=== PATIENT | female | born 1975 | race Caucasian/White ===

== ENCOUNTER 2022-12-26 08:51 | Outpatient (CLI) | payer BC, SELFPAY ==
--- NOTE | 2022-12-26 12:00 | NEURO_ITS ---
Impression: # Complains of hand paresthesia. # Carpal Tunnel Syndrome, left more than right. # No ulnar neuropathy. # Normal needle/EMG exam. Nerve Conduction Studies Anti Sensory Summary Table Stim Site NR Peak (ms) P-T Amp (?V) Site1 Site2 Delta-P (ms) Dist (cm) David (m/s) Left Median Anti Sensory (2-3nd Digit) Wrist 4.7 12.7 Wrist 2-3nd Digit 4.7 14.0 30 Wrist 4.6 5.8 Wrist 2-3nd Digit 4.7 14.0 30 Right Median Anti Sensory (2-3nd Digit) Wrist 4.8 14.1 Wrist 2-3nd Digit 4.8 14.0 29 Wrist 5.4 13.2 Wrist 2-3nd Digit 4.8 14.0 29 Left Radial Anti Sensory (Base 1st Digit) Wrist 1.8 22.1 Wrist Base 1st Digit 1.8 0.0 Right Radial Anti Sensory (Base 1st Digit) Wrist 2.3 12.0 Wrist Base 1st Digit 2.3 0.0 Left Ulnar Anti Sensory (5th Digit) Wrist 2.2 50.7 Wrist 5th Digit 2.2 14.0 64 Right Ulnar Anti Sensory (5th Digit) Wrist 2.1 70.3 Wrist 5th Digit 2.1 14.0 67 Motor Summary Table Stim Site NR Onset (ms) O-P Amp (mV) Site1 Site2 Delta-0 (ms) Dist (cm) David (m/s) Left Median Motor (Abd Poll Brev) Wrist 4.1 4.4 Elbow Wrist 4.9 28.0 57 Elbow 9.0 4.1 Right Median Motor (Abd Poll Brev) Wrist 3.3 3.2 Elbow Wrist 4.7 26.0 55 Elbow 8.0 1.3 ELB/ADM Wrist 0.3 0.0 ELB/ADM 3.0 2.8 Erbs ELB/ADM 4.7 26.0 55 Erbs 7.7 2.2 Left Ulnar Motor (Abd Dig Minimi) Wrist 2.2 4.5 A Elbow Wrist 5.1 29.0 57 A Elbow 7.3 4.0 Right Ulnar Motor (Abd Dig Minimi) Wrist 2.5 5.4 A Elbow Wrist 4.9 28.0 57 A Elbow 7.4 3.3 F Wave Studies NR F-Lat (ms) L-R F-Lat (ms) Left Median (Mrkrs) (Abd Poll Brev) 27.02 0.85 Right Median (Mrkrs) (Abd Poll Brev) 26.17 0.85 Left Ulnar (Mrkrs) (Abd Dig Min) 26.65 0.78 Right Ulnar (Mrkrs) (Abd Dig Min) 27.42 0.78 EMG Side Muscle Nerve Root Ins Act Fibs Amp Dur Recrt Comment Right 1stDorInt Ulnar C8-T1 Nml Nml Nml Nml Nml Right Ext Indicis Radial (Post Int) C7-8 Nml Nml Nml Nml Nml Right Ext Digitorum Radial (Post Int) C7-8 Nml Nml Nml Nml Nml Right BrachioRad Radial C5-6 Nml Nml Nml Nml Nml Right PronatorTeres Median C6-7 Nml Nml Nml Nml Nml Right Abd Poll Brev Median C8-T1 Nml Nml Nml Nml Nml Left 1stDorInt Ulnar C8-T1 Nml Nml Nml Nml Nml Left Ext Indicis Radial (Post Int) C7-8 Nml Nml Nml Nml Nml Left Ext Digitorum Radial (Post Int) C7-8 Nml Nml Nml Nml Nml Left BrachioRad Radial C5-6 Nml Nml Nml Nml Nml Left PronatorTeres Median C6-7 Nml Nml Nml Nml Nml Left Abd Poll Brev Median C8-T1 Nml Nml Nml Nml Nml MTDD
== END 2022-12-26 08:52 | disposition home or self-care (01) ==
PROVIDERS: PCP Physician Assistant; Visit Provider Physician Assistant
DX: G56.03 Carpal tunnel syndrome, bilateral upper limbs (principal)
CPT/HCPCS: 95886; 95911

== ENCOUNTER 2023-11-06 00:31 | Day surgery (SDC) | payer BC, SELFPAY ==
[2023-10-29 14:25] VITALS: BMI 37.8
--- NOTE | 2023-10-29 14:26 | PC.NURSE ---
Report to the Outpatient Waiting Room, entrance under the green pavilion located off [facility], at time _0715_ on date _[id number]_. Planned Procedure Time: _914_.? Time changes happen often and if your time is changed the preop area will call you the afternoon before. - You and your visitor will be asked to self-screen and do not enter if you have any COVID symptoms. Please call surgeon if you need to reschedule. - A mask is optional within the hospital at this time. - No food or drink from midnight until time of surgery and no smoking Take only the following medications with a SIP of water on the morning of surgery: ____Metoprolol and Escitalopram DO NOT STOP ANY OF YOUR OTHER PRESCRIPTION MEDICATIONS PRIOR TO SURGERY EXCEPT THE FOLLOWING Medications to discontinue per physician None Please no make-up, nail kinyarwanda, hairspray, perfume, deodorant, or body powder the day of surgery.? No jewelry (including any body piercings) or valuables the day of surgery, leave them at home.? Please take a shower or bath the night before, or the morning of, surgery with an antibacterial soap.? Wear comfortable, loose fitting clothing.? - Jewelry must be removed prior to entering the operating room.? Rings and piercings that are not removed may be cut off. - The hospital will not accept responsibility for valuables.? - Please leave all valuables, including medications, at home the day of surgery. If you are going home after surgery, a licensed tier truck driver must drive you home.? - NO public transportation without another adult if you receive anesthesia. - We recommend that an adult stay with you for 24 hours following discharge. - We also recommend that you do not drive, make important decision, drink alcoholic beverages, or take any drugs that were not prescribed by your health care provider for at least 24 hours after your discharge time. Follow any additional instructions given to you from your surgeon. Telephone instructions given to __Dawn__and asked if any additional questions and then verbalized understanding. Patient advised to call surgeon office or pre surgery nurse liaison [phone] if any additional questions.
[2023-11-06 06:50] VITALS: BP 130/84; PULSE 70; RESP 20; TEMP 36.6; O2SAT 98
--- NOTE | 2023-11-06 07:03 | PM.HPGS ---
History of Present Illness History of Present Illness Chief complaint: right carpal tunnel Narrative: Patient seen and examined in pre-operative holding area. No interval change in medical history or symptoms. Patient recalls previous discussion of benefits and alternatives to procedure. Continues to desire to proceed with right endoscopic possible open carpal tunnel release. Reviewed procedure, post-op expectations and risks including but not limited to bleeding, infection, injury to tendon/nerve/vessel, decreased hand function, stiffness, RSD, no change or worsening of symptoms. I discussed the possible use of assistants and their participation in the case. Patient stated understanding and signed the consent form wishing to proceed. Review of Systems Review of Systems: All systems reviewed & are unremarkable except as noted in HPI and below PMFSH Family History Family History (Updated 07/21/23 @ 13:41 by Kianna Olivia CMA) Father Cancer Hypertension Mother Diabetes mellitus Heart disease Thyroid disorder Grandparent Heart disease Cancer Social History Social History (Updated 07/21/23 @ 13:36 by Kianna Olivia CMA) Smoking status: Never smoker Alcohol intake: never Substance use: never Substance use type: does not use Do You Feel Safe in your Home?: Yes Lack of Transportation: No Lack of Food: Never True Current Housing: I Have Housing Concerned About Future Housing: No Difficulty Paying Gas/Electric Bills: No Difficulty Paying for Meds: No Currently Unemployed: No Education: High School Diploma/GED Difficulty w/ Childcare or Family Care: No Living arrangements: with family Spiritual care concerns: No Meds Home Medications and Allergies Home Medications Medication Instructions Recorded Confirmed Type escitalopram oxalate 10 mg tablet 10 mg PO DAILY 07/21/23 11/06/23 History metoprolol succinate 50 mg 50 mg PO DAILY 07/21/23 11/06/23 History tablet,extended release 24 hr valsartan 160 mg tablet 160 mg PO DAILY 07/21/23 11/06/23 History Allergies Allergy/AdvReac Type Severity Reaction Status Date / Time No Known Allergies Allergy Unknown Verified 10/29/23 14:19 Exam Narrative: unchanged Assessment and Plan Assessment and plan (1) Carpal tunnel syndrome, bilateral: Code(s): G56.03 - Carpal tunnel syndrome, bilateral upper limbs Status: Acute Assessment and Plan: cont as above
--- NOTE | 2023-11-06 07:04 | P.OP_ITS ---
Procedure Note - Detailed Date of Procedure 11/06/23 Pre-op Diagnosis right carpal tunnel Post-op Diagnosis Same Procedure Performed right ectr Surgeon Abiodun Ortiz MD Food Safety Field Specialist gibran espinoza pa-c Anesthesia MAC Description of Procedure INFORMED CONSENT: The patient was seen and examined and marked in the pre-op area.? The patient signed the consent form. PROCEDURE IN DETAIL:The patient taken back to OR on the stretcher in supine position. Time out performed with anesthesia, surgeon and staff agreeing on patient's name site and surgery to be performed SCDs were placed on the lower extremities and inflated. A tourniquet was placed on {right} upper extremity and antibiotics given IV After anesthesia administered sedation I injected {5}cc 1%lido with epi and 0.5% marcaine plain at the operative site The?{right upper extremity}?was prepped and draped in sterile fashion the??{right upper extremity} was? exsanguinated with Esmarch bandage and tourniquet inflated to 250mmHg I made a transverse incision in the right} volar distal wrist crease through skin and dermis with 15 blade scalpel.? Littler scissors spread down to antebrachial fascia. A small incision was made in antebrachial fascia allowing access to Carpal tunnel. I proceeded with sequential dilation staying in line with the ring finger and hugging the hook of the hamate.? I then used the synovial elevator to free any adhesions from the underside of the transverse carpal ligament. Next I was able to insert the Microaire endoscopic carpal tunnel device with direct visualization of the transverse fibers on the monitor and proceeded with complete segmental retrograde release of the ligament in its entirety.? I irrigated with normal saline and closed with 4-0 monocryl for dermis and subcuticular closure. A dressing of Dermabond, 4x4, alexandre, and a volar splint was applied for patient safety, security, and comfort and secured with an lexis bandage after the tourniquet was let down noting the hand was warm and well perfused. The patient was then awaken from anesthesia and transferred to the recovery room in stable condition.? Complications - none EBL- 0cc Disposition - home in stable conditions gibran espinoza pa-c was essential for positioning, retraction, closure and dressing placement [facility] [place] Billing Surgery - Charge Forward: Surgery Billing ([id number] for gibran)
[2023-11-06] MEDS: LACTATED RINGERS 1,000 ML 30 ML IV CONT (07:32)
--- NOTE | 2023-11-06 07:45 | WPDANESEPPF ---
Anes - Initial Pre Proc Eval Procedure: Operation Date: 11/06/23 08:15 Proposed Procedures p Right Endoscopic Carpal Tunnel Release, Possible Open - Abiodun Ortiz MD Date/Time: 11/06/23 07:45 Surgeon: Abiodun Ortiz MD Pre Op Diagnosis: right carpal tunnel Patient Data Age: 48 Gender: F Height: 1.63 m Weight: 100 kg Allergies Allergy/AdvReac Type Severity Reaction Status Date / Time No Known Allergies Allergy Unknown Verified 10/29/23 14:19 Home Medications Medication Instructions Recorded Confirmed Type escitalopram oxalate 10 mg tablet 10 mg PO DAILY 07/21/23 11/06/23 History metoprolol succinate 50 mg 50 mg PO DAILY 07/21/23 11/06/23 History tablet,extended release 24 hr valsartan 160 mg tablet 160 mg PO DAILY 07/21/23 11/06/23 History Patient hx anesthesia problems: none Family hx anesthesia problems: none Results Review: All pre-operative results and documents have been reviewed as part of the pre-operative evaluation. [facility] Family History Family History (Updated 07/21/23 @ 13:41 by Kianna Olivia CMA) Father Cancer Hypertension Mother Diabetes mellitus Heart disease Thyroid disorder Grandparent Heart disease Cancer Social History Social History (Updated 07/21/23 @ 13:36 by Kianna Olivia CMA) Smoking status: Never smoker Alcohol intake: never Substance use: never Substance use type: does not use Do You Feel Safe in your Home?: Yes Lack of Transportation: No Lack of Food: Never True Current Housing: I Have Housing Concerned About Future Housing: No Difficulty Paying Gas/Electric Bills: No Difficulty Paying for Meds: No Currently Unemployed: No Education: High School Diploma/GED Difficulty w/ Childcare or Family Care: No Living arrangements: with family Spiritual care concerns: No Anes - Eval Final PreProcedure Day of Procedure 11/06/23 07:45 Patient weight: obese Heart: regular rate and rhythm Lungs: clear to auscultation Airway: Mallampati scale class II Neurological: alert and oriented Last oral intake: >/= 8 hours ASA classification: III Emergent: no Anesthetic plan: proceed Anesthesia type and monitoring: general GIVS and standard monitoring Results Review: All pre-operative results and documents have been reviewed as part of the pre-operative evaluation. Informed Consent: The patient's anesthetic plan and its attendant risks and benefits were discussed with the patient/family/POA. Questions were solicited and answers provided to the satisfaction of the patient/family/POA.
[2023-11-06] MEDS: ceFAZolin 2 GM/D5W 50 ML 2 GM/50 ML BAG IVPB (08:15)
[2023-11-06] MEDS: LIDO 1%/EPINEPHRINE 1:100,000 50 ML VIAL 10 ML INFILTRATE (08:22)
[2023-11-06 08:39] VITALS: BP 113/69; PULSE 57; RESP 16; O2SAT 100
[2023-11-06 09:10] VITALS: BP 114/62; PULSE 63; RESP 16
[2023-11-06 09:40] VITALS: BP 118/66; PULSE 66; RESP 16
[2023-11-09 14:24] LABS: BEDSIDEPREGUCG Negative (Negative)
== END 2023-11-06 09:50 | disposition home or self-care (01) ==
PROVIDERS: Physician Assistant Surgical; PCP Physician Assistant; Visit Provider Plastic Surgery
PROC: 01N54ZZ Release Median Nerve, Percutaneous Endoscopic Approach (ICD-10-PCS; CPT 29848; principal; 2023-11-06 08:15)
DX: G56.01 Carpal tunnel syndrome, right upper limb (principal); E66.9 Obesity, unspecified; Z68.38 Body mass index [BMI] 38.0-38.9, adult; Z80.9 Family history of malignant neoplasm, unspecified; Z82.49 Family history of ischemic heart disease and other diseases of the circulatory system
CPT/HCPCS: 29848; J0690; J1100; J2250; J2405; J2704; J3010; J7120

== ENCOUNTER 2023-12-30 01:04 | Day surgery (SDC) | payer BC, SELFPAY ==
[2023-12-23 13:56] VITALS: BMI 37.8
--- NOTE | 2023-12-23 13:56 | PC.NURSE ---
Report to the Outpatient Waiting Room, entrance under the green pavilion located off [facility], at time _0915_ on date _[phone]_. Planned Procedure Time: _1115_.? Time changes happen often and if your time is changed the preop area will call you the afternoon before. - You and your visitor will be asked to self-screen and do not enter if you have any COVID symptoms. Please call surgeon if you need to reschedule. - A mask is optional within the hospital at this time. Patients may have clear liquids (water, carbonated beverages, clear teas, apple juice) until 3 hours prior to surgery with a maximum of 20 ounces. - No food from midnight until time of surgery and no smoking Take only the following medications with a SIP of water on the morning of surgery: ___Escitalopram and Metoprolol____ DO NOT STOP ANY OF YOUR OTHER PRESCRIPTION MEDICATIONS PRIOR TO SURGERY EXCEPT THE FOLLOWING Medications to discontinue per physician ___None___ Date to take last dose__ Please no make-up, nail canadian, hairspray, perfume, deodorant, or body powder the day of surgery.? No jewelry (including any body piercings) or valuables the day of surgery, leave them at home.? Please take a shower or bath the night before, or the morning of, surgery with an antibacterial soap.? Wear comfortable, loose fitting clothing.? - Jewelry must be removed prior to entering the operating room.? Rings and piercings that are not removed may be cut off. - The hospital will not accept responsibility for valuables.? - Please leave all valuables, including medications, at home the day of surgery. If you are going home after surgery, a licensed pile driver operator barge mounted must drive you home.? - NO public transportation without another adult if you receive anesthesia. - We recommend that an adult stay with you for 24 hours following discharge. - We also recommend that you do not drive, make important decision, drink alcoholic beverages, or take any drugs that were not prescribed by your health care provider for at least 24 hours after your discharge time. Follow any additional instructions given to you from your surgeon. Telephone instructions given to __Dawn__and asked if any additional questions and then verbalized understanding. Patient advised to call surgeon office or pre surgery nurse liaison [phone] if any additional questions.
--- NOTE | 2023-12-23 14:00 | PC.NURSE ---
Report to the Outpatient Waiting Room, entrance under the green pavilion located off [facility], at time _0915_ on date _[phone]_. Planned Procedure Time: _1115_.? Time changes happen often and if your time is changed the preop area will call you the afternoon before. - You and your visitor will be asked to self-screen and do not enter if you have any COVID symptoms. Please call surgeon if you need to reschedule. - A mask is optional within the hospital at this time. May have clear liquids (water, carbonated beverages, clear teas, apple juice) until 315am with a maximum of 20 ounces. Nothing to drink after 315am until after surgery except to take medications. - No food from midnight until time of surgery and no smoking Take only the following medications with a SIP of water on the morning of surgery: ___Excitalopram and Metoprolol____ DO NOT STOP ANY OF YOUR OTHER PRESCRIPTION MEDICATIONS PRIOR TO SURGERY EXCEPT THE FOLLOWING Medications to discontinue per physician __None____ Please no make-up, nail guatemalan, hairspray, perfume, deodorant, or body powder the day of surgery.? No jewelry (including any body piercings) or valuables the day of surgery, leave them at home.? Please take a shower or bath the night before, or the morning of, surgery with an antibacterial soap.? Wear comfortable, loose fitting clothing.? - Jewelry must be removed prior to entering the operating room.? Rings and piercings that are not removed may be cut off. - The hospital will not accept responsibility for valuables.? - Please leave all valuables, including medications, at home the day of surgery. If you are going home after surgery, a licensed flatbed driver must drive you home.? - NO public transportation without another adult if you receive anesthesia. - We recommend that an adult stay with you for 24 hours following discharge. - We also recommend that you do not drive, make important decision, drink alcoholic beverages, or take any drugs that were not prescribed by your health care provider for at least 24 hours after your discharge time. Follow any additional instructions given to you from your surgeon. Telephone instructions given to __Dawn__and asked if any additional questions and then verbalized understanding. Patient advised to call surgeon office or pre surgery nurse liaison [phone] if any additional questions.
--- NOTE | 2023-12-30 06:55 | PM.HPGS ---
History of Present Illness History of Present Illness Chief complaint: carpal tunnel syndrome Narrative: Patient seen and examined in pre-operative holding area. No interval change in medical history or symptoms. Patient recalls previous discussion of benefits and alternatives to procedure. Continues to desire to proceed with left endoscopic possible open carpal tunnel release . Reviewed procedure, post-op expectations and risks including but not limited to bleeding, infection, injury to tendon/nerve/vessel, decreased hand function, stiffness, RSD, no change or worsening of symptoms. I discussed the possible use of assistants and their participation in the case. Patient stated understanding and signed the consent form wishing to proceed. Review of Systems Review of Systems: All systems reviewed & are unremarkable except as noted in HPI and below PMFSH Family History Family History Father Cancer Hypertension Mother Diabetes mellitus Heart disease Thyroid disorder Grandparent Heart disease Cancer Social History Social History Smoking status: Never smoker Alcohol intake: never Substance use: never Substance use type: does not use Do You Feel Safe in your Home?: Yes Lack of Transportation: No Lack of Food: Never True Current Housing: I Have Housing Concerned About Future Housing: No Difficulty Paying Gas/Electric Bills: No Difficulty Paying for Meds: No Currently Unemployed: No Education: High School Diploma/GED Difficulty w/ Childcare or Family Care: No Living arrangements: with family Spiritual care concerns: No Meds Home Medications and Allergies Home Medications Medication Instructions Recorded Confirmed Type escitalopram oxalate 10 mg tablet 10 mg PO DAILY 07/21/23 12/23/23 History metoprolol succinate 50 mg 50 mg PO DAILY 07/21/23 12/23/23 History tablet,extended release 24 hr valsartan 160 mg tablet 160 mg PO DAILY 07/21/23 12/30/23 History tramadol 50 mg tablet 50 mg PO Q6H PRN pain #12 tabs 11/06/23 12/23/23 Rx Allergies Allergy/AdvReac Type Severity Reaction Status Date / Time No Known Allergies Allergy Unknown Verified 12/30/23 09:55 Exam Narrative: unchanged Assessment and Plan Assessment and plan (1) Carpal tunnel syndrome, bilateral: Code(s): G56.03 - Carpal tunnel syndrome, bilateral upper limbs Status: Acute Assessment and Plan: cont as above
--- NOTE | 2023-12-30 06:55 | W.PM.PROC2 ---
Procedure Note - Detailed Date of Procedure 12/30/23 Pre-op Diagnosis left carpal tunnel syndrome Post-op Diagnosis Same Procedure Performed left ectr Surgeon Abiodun Ortiz MD Supervisor Cytogenetic Laboratory gibran espinoza pa-c Anesthesia MAC Description of Procedure INFORMED CONSENT: The patient was seen and examined and marked in the pre-op area.? The patient signed the consent form. PROCEDURE IN DETAIL:The patient taken back to OR on the stretcher in supine position. Time out performed with anesthesia, surgeon and staff agreeing on patient's name site and surgery to be performed SCDs were placed on the lower extremities and inflated. A tourniquet was placed on {left} upper extremity and antibiotics given IV After anesthesia administered sedation I injected {4}cc 1%lido with epi and 0.5% marcaine plain at the operative site The?{left upper extremity}?was prepped and draped in sterile fashion the??{left upper extremity} was? exsanguinated with Esmarch bandage and tourniquet inflated to 250mmHg I made a transverse incision in the {left} volar distal wrist crease through skin and dermis with 15 blade scalpel.? Littler scissors spread down to antebrachial fascia. A small incision was made in antebrachial fascia allowing access to Carpal tunnel. I proceeded with sequential dilation staying in line with the ring finger and hugging the hook of the hamate.? I then used the synovial elevator to free any adhesions from the underside of the transverse carpal ligament. Next I was able to insert the Microaire endoscopic carpal tunnel device with direct visualization of the transverse fibers on the monitor and proceeded with complete segmental retrograde release of the ligament in its entirety.? I irrigated with normal saline and closed with 4-0 monocryl for dermis and subcuticular closure. A dressing of Dermabond, 4x4, alexandre, and a volar splint was applied for patient safety, security, and comfort and secured with an lexis bandage after the tourniquet was let down noting the hand was warm and well perfused. The patient was then awaken from anesthesia and transferred to the recovery room in stable condition.? Complications - none EBL- 0cc Disposition - home in stable conditions Gibran Espinoza PA-C was essential for positionig, retraction, closure and dressing placement [facility] [place] Billing Surgery - Charge Forward: Surgery Billing ([id number] for gibran)
[2023-12-30 10:05] VITALS: BP 132/84; PULSE 68; RESP 18; TEMP 36.7; O2SAT 99
[2023-12-30] MEDS: LACTATED RINGERS 1,000 ML 30 ML IV CONT (10:09)
[2023-12-30 10:17] VITALS: BMI 38.9
[2023-12-30 10:29] LABS: BEDSIDEPREGUCG Negative (Negative)
--- NOTE | 2023-12-30 10:36 | P.PNAN_ITS ---
Anes - Initial Pre Proc Eval Procedure: Operation Date: 12/30/23 11:15 Proposed Procedures p Left Endoscopic Carpal Tunnel Release, Possible Open - Abiodun Ortiz MD Date/Time: 12/30/23 10:36 Surgeon: Abiodun Ortiz MD Pre Op Diagnosis: carpal tunnel syndrome Patient Data Age: 48 Gender: F Height: 1.63 m Weight: 103.1 kg Last Vital Signs Temp 98.1 F 12/30/23 10:05 Pulse 68 12/30/23 10:05 Resp 18 12/30/23 10:05 BP 132/84 12/30/23 10:05 Pulse Ox 99 12/30/23 10:05 O2 Del Method Room Air 12/30/23 10:05 Allergies Allergy/AdvReac Type Severity Reaction Status Date / Time No Known Allergies Allergy Unknown Verified 12/30/23 09:55 Home Medications Medication Instructions Recorded Confirmed Type escitalopram oxalate 10 mg tablet 10 mg PO DAILY 07/21/23 12/23/23 History metoprolol succinate 50 mg 50 mg PO DAILY 07/21/23 12/23/23 History tablet,extended release 24 hr valsartan 160 mg tablet 160 mg PO DAILY 07/21/23 12/30/23 History tramadol 50 mg tablet 50 mg PO Q6H PRN pain #12 tabs 11/06/23 12/23/23 Rx Laboratory Tests 12/30/23 10:25 POC Urine HCG, Qual Negative (Negative) Patient hx anesthesia problems: none Family hx anesthesia problems: none Results Review: All pre-operative results and documents have been reviewed as part of the pre- operative evaluation. [facility] Family History Family History Father Cancer Hypertension Mother Diabetes mellitus Heart disease Thyroid disorder Grandparent Heart disease Cancer Social History Social History Smoking status: Never smoker Alcohol intake: never Substance use: never Substance use type: does not use Do You Feel Safe in your Home?: Yes Lack of Transportation: No Lack of Food: Never True Current Housing: I Have Housing Concerned About Future Housing: No Difficulty Paying Gas/Electric Bills: No Difficulty Paying for Meds: No Currently Unemployed: No Education: High School Diploma/GED Difficulty w/ Childcare or Family Care: No Living arrangements: with family Spiritual care concerns: No Anes - Eval Final PreProcedure Day of Procedure 12/30/23 10:36 Patient weight: obese Heart: regular rate and rhythm Lungs: clear to auscultation Airway: Mallampati scale class II and special considerations (Missing some in the post upper aspect. ) Neurological: alert and oriented Last oral intake: >/= 8 hours ASA classification: III Emergent: no Anesthetic plan: proceed Anesthesia type and monitoring: general GIVS and standard monitoring Results Review: All pre-operative results and documents have been reviewed as part of the pre- operative evaluation. Informed Consent: The patient's anesthetic plan and its attendant risks and benefits were discussed with the patient/family/POA. Questions were solicited and answers provided to the satisfaction of the patient/family/POA.
[2023-12-30] MEDS: ceFAZolin 2 GM/D5W 50 ML 2 GM/50 ML BAG IVPB (10:41)
[2023-12-30] MEDS: LIDO 1%/EPINEPHRINE 1:100,000 20 ML VIAL 10 ML INFILTRATE (10:45)
[2023-12-30] MEDS: BUPivacaine HCL 0.5% 10 ML AMP 5 ML INFILTRATE (10:46)
[2023-12-30 11:05] VITALS: BP 108/66; PULSE 66; RESP 16; O2SAT 93
[2023-12-30 11:30] VITALS: BP 93/68; PULSE 53; RESP 16; O2SAT 98
[2023-12-30 12:00] VITALS: BP 120/74; PULSE 61; RESP 16
[2023-12-30 12:15] VITALS: BP 118/76; PULSE 56; RESP 16
== END 2023-12-30 12:20 | disposition home or self-care (01) ==
PROVIDERS: Physician Assistant Surgical; PCP Physician Assistant; Visit Provider Plastic Surgery
PROC: 01N54ZZ Release Median Nerve, Percutaneous Endoscopic Approach (ICD-10-PCS; CPT 29848; principal; 2023-12-30 11:15)
DX: G56.02 Carpal tunnel syndrome, left upper limb (principal); E66.9 Obesity, unspecified; Z68.39 Body mass index [BMI] 39.0-39.9, adult
CPT/HCPCS: 29848; A9270; J0690; J2003; J2004; J2250; J2405; J2704; J3010; J7120

== ENCOUNTER 2025-01-09 10:44 | Emergency (ER) | payer BC, SELFPAY ==
[2025-01-09 10:47] VITALS: BP 172/90; PULSE 90; RESP 16; TEMP 36.6; O2SAT 100
[2025-01-09 11:29] LABS: Hematocrit 40.6 % (37.0-47.0); Hemoglobin 13.3 g/dL (12.0-15.0); Immature Granulocyte Percent A 0.3 % (0-0.5); Lymphocytes Absolute Auto 0.84 K/mm3 (0.9-3.2); Mean Corpuscular HGB Conc 32.8 g/dl (32-36); Mean Corpuscular Hemoglobin 28.4 pg (26-34); Mean Corpuscular Volume 86.8 fl (80-100); Nucleated Red Blood Cells Absolute Auto 0.000 K/mm3 (0.0-0.012); Nucleated Red Blood Cells Perc 0.0 % (0.0-0.2); Platelet Count Result 297 k/mm3 (150-375); Red Blood Count 4.68 M/mm3 (4.2-5.4); White Blood Count 7.8 K/mm3 (4.5-10.0)
[2025-01-09 11:32] LABS: Add Urine Microscopic? YES; Appearance Urine Clear (Clear); Glucose Urine UA Negative (Negative); Leukocyte Esterase Ur Trace LEU/UL (Negative); Nitrate Urine Negative (Negative); Non Pathogenic Casts 0-2; Specific Grav Ur 1.006 (1.001-1.035)
[2025-01-09 11:45] LABS: Pregnancy On Board Control Positive
[2025-01-09 11:49] LABS: Alanine Aminotransferase 37 U/L (6-35); Albumin Level 4.6 g/dL (3.5-5.1); Alkaline Phosphatase 33 U/L (38-126); Anion Gap 7 mmol/L (4-12); Aspartate Amino Transferase 38 U/L (14-36); Bilirubin,Total 2.6 mg/dL (0.2-1.3); Blood Urea Nitrogen 21 mg/dL (7-17); Calcium 9.2 mg/dL (8.4-10.2); Carbon Dioxide 29 mmol/L (22-30); Chloride 101 mmol/L (98-107); Estimated CRCL calculation 68 ml/min; Estimated Glomerular Filt Rate 59; Glucose 106 mg/dL (65-110); Lipase 175 U/L (23-300); Potassium 3.6 mmol/L (3.4-5.0); Sodium 137 mmol/L (137-145); Total Protein 8.3 g/dL (6.3-8.2)
[2025-01-09] MEDS: SODIUM CHLORIDE 0.9% IV 1,000 ML 999 ML IV CONT (12:07)
--- OUTSIDE RECORDS SUMMARY | 2025-01-09 12:13 | XMS_ITS | Clinical Summary ---
Author Organization [facility] Address [address] [place] [address] Care Team Providers Care Home School Teacher Name Role Phone Jana Guadarrama Primary Care Pr ovider Source Comments [facility],non-owned Affiliates and Associated Physician Practices is amultiple site organization consisting of ambulatory clinics and hospital sitesin [place], [place], [place] and [place]. This disclosure is being madepursuant to the Care Everywhere program and may not contain all information available regarding this patient. Last updated 17.[facility] Allergies No known active allergies Medications * Be aware that medications may not be up to date on this document. Alwaysverify current medications with the patient. metoprolol succinate XL 24hr (TOPROL XL) 100 MG tablet Take 100 mg by mouth at bedtime 1 Active irbesartan (AVAPRO) 150 MG tablet Take 150 mg by mouth once daily 1 Active polyethylene glycol 3350 (MIRALAX) 17 g packet Take 17 (seventeen) g by mouth once daily To prevent constipation 2 Active Additional Information Patient not taking.Reported on 09/16/2021 omeprazole (PRILOSEC) 20 MG capsule Take 1 (one) capsule by mouth once daily 30 capsule 5 2 Active Active Problems Problem Noted Date Diagnosed Date Morbid obesity 03/18/2021 Family History Medical History Relation Name Comments Cancer Father tonsil Diabetes - Type 2 Mother Hypertension Mother Cancer - Colon Paternal Grandmother Relation Name Status Comments Father Mother Paternal Grandmother Social History Tobacco Use Types Packs/Day Years Used Date Smoking Tobacco: Never Smokeless Tobacco: Never Alcohol Use Standard Drinks/Week Comments Not Currently 0 (1 standard drink = 0.6 oz pur e alcohol) Comments No Sex and Gender Information Value Date Recorded Sex Assigned at Female 12/06/2020 5:22 PM CDT Legal Sex Female 10:09 AM CDT Gender Identity Female 12/06/2020 5:22 PM CDT Sexual Orientation Straight 12/06/2020 5: 22 PM CDT Last Filed Vital Signs Vital Sign Reading Time Taken Comments Blood Pressure 131/87 09/16/2021 1:48 PM CDT Pulse 83 09/16/2021 1:48 PM CDT Temperature 36.5 C (97.7 F) 04/18/2021 10:24 AM BALL HOLDER Respiratory Rate 18 09/16/2021 1:48 PM CDT Oxygen Saturation 99% 09/16/2021 1:48 PM CDT Inhaled Oxygen Concentration - - Weight 89.1 kg (196 lb 6.4 oz) 09/16/2021 1:48 P M CDT Height 160 cm (5' 3) 09/16/2021 1:48 PM CDT Body Mass Index 34.79 09/16/2021 1:48 PM CDT Plan of Treatment Health Maintenance Due Date Last Done Comments COLOGUARD (AGES 45-75) - COLON CA SCREENING 1976 COLON MONITORING 1976 COLONOSCOPY - COLON CA SCREENING 1976 CT COLONOGRAPHY - COLON CA SCREENING 1976 Colorectal Cancer Screening 1976 FIT - COLON CA SCREENING 1976 FLEX SIG - COLON CA SCREENING 1976 LIPID TESTING 1975 MAMMOGRAM 1976 HIV SCREENING 09/07/1991 HEPATITIS C SCREENING 09/02/1994 DTAP/TDAP/TD VACCINES (1 - Tdap) 09/07/1995 HEPATITIS B VACCINE (1 of 3 - 19+ 3-dose series) 09/07/1995 Cervical Cancer Screening 1997 PAP SMEAR 1997 PAP with HPV 2006 DEPRESSION SCREENING 02/10/2024 SCREENING FOR DIABETES 03/19/2024 , 03/18/2021, 03/18/2021, Additional history exists COVID-19 VACCINE ( season) 2024 07/23/2020, 07/02/2020 INFLUENZA VACCINE (#1) 2024 ZOSTER VACCINE (1 of 2) 2026 HIB VACCINE Aged Out No longer eligi ble based on patient's age to complete this topic HPV VACCINE Aged Out No longer eligi ble based on patient's age to complete this topic MENINGOCOCCAL (Group B) VACCINE SHARED DECISION-MAKING Aged Out No longer eligible based on patient's age to complete this topic MENINGOCOCCAL GROUPS A/C/Y/W VACCINE Aged Out No longer eligible based on patient's age to complete this topic PNEUMOCOCCAL VACCINE Aged Out No long er eligible based on patient's age to complete this topic Procedures Procedure Name Priority Date/Time Associated Diagnosis Comments BASIC METABOLIC PANEL (CALCIUM TOTAL) AM Draw 03/19/2021 3:55 AM BALL HOLDER from Last 3 Months or Most Recently Relevant to Health Maintenance Results * (ABNORMAL) BASIC METABOLIC PANEL (CALCIUM TOTAL) (03/19/2021 3:55 AM BALL HOLDER) Glucose 119(H) 70 - 105 mg/dL 03/19/2021 5:19 AM BALL HOLDER [facility] Sodium 139 136 - 145 mmol/L 03/19/2021 5:19 AM BALL HOLDER [facility] Potassium 3.7 3.5 - 5.1 mmol/L 03/19/2021 5:19 AM BALL HOLDER [facility] Chloride 105 98 - 107 mmol/L 03/19/2021 5:19 AM BALL HOLDER [facility] CO2 24 23 - 31 mmol/L 03/19/2021 5:19 AM BALL HOLDER [facility] Calcium 9.0 8.4 - 10.4 mg/dL 03/19/2021 5:19 AM BALL HOLDER [facility] Anion Gap 10 8 - 18 mmol/L 03/19/2021 5:19 AM BALL HOLDER [facility] BUN 9 7 - 18.7 mg/dL 03/19/2021 5:19 AM [facility] Creatinine 1.17(H) 0.57 - 1.11 mg/dL 03/19/2021 5:19 AM BALL HOLDER [facility] eGFR by MDRD 50(L) >60 mL/min/1.7 3m2 03/19/2021 5:19 AM BALL HOLDER [facility] eGFR by MDRD >60 >60 mL/min/1.7 3m2 03/19/2021 5:19 AM BALL HOLDER [facility] Blood BLOOD SPECIMEN / Unknown Venipuncture / Unknown 03/19/2021 3:55 AM BALL HOLDER 03/19/2021 4:49 AM BALL HOLDER us Solo Velez MD LAB - CHEMISTRY ORDERABLES F inal Result [facility] [address] [place] [address] from Last 3 Months or Most Recently Relevant to Health Maintenance Insurance Advance Directives * Full Code (Latest Code Status on File) Date Activated Date Inactivated Comments 03/18/2021 3:37 PM 03/19/2021 3:22 PM Care Teams Home School Teacher Relationship Specialty Start Date End Date Jana Guadarrama PA [address] [place] [address] PCP - General Physician Lens Inspector 09/19/20
--- OUTSIDE RECORDS SUMMARY | 2025-01-09 12:13 | XMS_ITS | Clinical Summary ---
Author Organization [facility] [address] Address [address] [place] [address] Care Team Providers Care Internet Marketing Director Name Role Phone Jana Harden Primary Care Pr ovider Allergies No known active allergies Medications metoprolol XL (TOPROL-XL) 100 mg 24 hr tablet Take 0.5 tablets (50 mg total) by mouth daily Active valsartan (DIOVAN) 160 mg tablet Take 1 tablet (160 mg total) by mouth daily Active escitalopram (LEXAPRO) 10 mg tablet Take 1 tablet (10 mg total) by mouth daily Active Active Problems Problem Noted Date Diagnosed Date Screening for colon cancer 06/11/2023 Medical History Medical History Date Comments Hypertension Family History Medical History Relation Name Comments Colon cancer Paternal Grandmother Relation Name Status Comments Paternal Grandmother Social History Tobacco Use Types Packs/Day Years Used Date Smoking Tobacco: Never Tobacco Cessation:Counseling Given: Not Answered AUDIT-C Answer Date Recorded Q1: How often do you have a drink containing alcohol? Never 02/23/2024 Q2: How many drinks containi ng alcohol do you have on a typical day when you are drinking? Patient does not drink Q3: How often do you have si x or more drinks on one occasion? Never 02/23/2024 Personal Safety Answer Date Recorded Have you ever been in or are you currently in a harmful physical or emotional relationship or is someone making you feel afraid or unsafe? Denies 02/24/2024 Comments Unknown Sex and Gender Information Value Date Recorded Sex Assigned at Not on file Legal Sex Female 2:41 AM CUSTOMER LEADER Gender Identity Not on file Sexual Orientation Not on file Last Filed Vital Signs Vital Sign Reading Time Taken Comments Blood Pressure 93/67 02/24/2024 10:06 AM CUSTOMER LEADER Pulse 66 02/24/2024 10:06 AM CUSTOMER LEADER Temperature 36.9 C (98.5 F) 02/24/2024 10:06 AM CUSTOMER LEADER Respiratory Rate 16 02/24/2024 10:06 AM CUSTOMER LEADER Oxygen Saturation 100% 02/24/2024 10:06 AM CUSTOMER LEADER Inhaled Oxygen Concentration - - Weight 104.3 kg (230 lb) 02/24/2024 8:48 AM CUSTOMER LEADER Height 162.6 cm (5' 4) 02/24/2024 8:48 AM CUSTOMER LEADER Body Mass Index 39.48 02/24/2024 8:48 AM CUSTOMER LEADER Plan of Treatment Health Maintenance Due Date Last Done Comments Breast Cancer Screening-Mammogram 1976 Cervical Cancer Screening 1976 Depression Screening 1976 Hepatitis C Screening 1976 DTaP/Tdap/Td Vaccine (1 - Tdap) 09/07/1987 Hepatitis B Screening 1994 Regular Well Visit/Exam 18-64 1994 Influenza Vaccine (#1) 2024 Colon Cancer Screening-Colonoscopy 02/23/20342024 Pneumococcal vaccine <65 Aged Out No longer eligible based on patient's age to complete this topic Procedures Procedure Name Priority Date/Time Associated Diagnosis Comments COLONOSCOPY 02/24/2024 8:51 AM CUSTOMER LEADER from Last 3 Months or Most Recently Relevant to Health Maintenance Results * Colonoscopy (02/24/2024 8:51 AM CUSTOMER LEADER) Anatomical Region Laterality Modality Other Narrative Procedure Note Jay Cardona MD - 02/24/2024 8:51 AM CST [facility] Patient Name: Aislinn Macario Procedure Date: 02/24/2024 8:51 AM Date of : 1975 Admit Type: Outpatient Age: 48 Gender: Female Attending MD: Jay Cardona M.D. Room: [facility] ENDOSCOPY ROOM 2 Note Status: Finalized Patient Profile: This is a 48 year old female history of gastric sleeve, HTN, depression anxiety, obesity here for colon cancer screening. No prior colonoscopy. Grandparent with colon cancer. Procedure: Colonoscopy Indications: Screening for colorectal malignant neoplasm, Thisis the patient's first colonoscopy Referring MD: HERMILO CrawfordC Providers: Jay Cardona M.D. Impression: - Preparation of the colon was fair. - External and internal hemorrhoids. - No specimens collected. Recommendation: - Patient has a contact number available for emergencies. The signs and symptoms of potential delayed complications were discussed with thepatient. Return to normal activities tomorrow. Written discharge instructions were provided to thepatient. - Discharge patient to home (with escort). - Resume previous diet. - Continue present medications. - Repeat colonoscopy in 3 years with 2 day prep for screening purposes. - Return to referring physician as previously scheduled. Medicines: Monitored Anesthesia Care Complications: No immediate complications. Estimated Blood Loss: Estimated blood loss: none. Procedure: Pre-Anesthesia Assessment: - Prior to the procedure, a History and Physicalwas performed, and patient medications and allergieswere reviewed. The patient is competent. The risks and benefits of the procedure and the sedation optionsand risks were discussed with the patient. Allquestions were answered and informed consent was obtained. Patient identification and proposed procedure were verified by the physician, the scrub woman and the aviation electrical technician in the endoscopy suite. Mental Status Examination: normal. Prophylactic Antibiotics: The patient does not require prophylactic antibiotics. Prior Anticoagulants: The patient has taken no anticoagulant or antiplatelet agents. Afterreviewing the risks and benefits, the patient was deemed in satisfactory condition to undergo the procedure.The anesthesia plan was to use monitored anesthesiacare (MAC). Immediately prior to administration of medications, the patient was re-assessed foradequacy to receive sedatives. The heart rate, respiratory rate, oxygen saturations, blood pressure, adequacyof pulmonary ventilation, and response to care were monitored throughout the procedure. The physical status of the patient was re-assessed after the procedure. The benefits, risks and alternatives of theprocedure and sedation were discussed and informed consentwas obtained. All questions were answered. Please referto the signed informed consent document in the medical record. The bowel preparation used was Miralax and bisacodyl tablets via split dose instruction. The scope was passed under direct vision. TheColonoscope [id number] was introduced through the anus and advanced to the the cecum, identified by appendiceal orifice and ileocecal valve. The colonoscopy was performed without difficulty. The patient tolerated the procedure well. The qualityof the bowel preparation was fair. Bowel prep was administered using a split dose. Findings: The perianal and digital rectal examinations were normal. External and internal hemorrhoids were found during retroflexion. Jay Cardona M.D. 02/24/2024 9:42:29 AM Number of Addenda: 0 Note Initiated On: 02/24/2024 8:51 AM Procedure Code(s): --- Professional --- G0121, Colorectal cancer screening; colonoscopy on individual not meeting criteria for high risk --- Technical --- G0121, Colorectal cancer screening; colonoscopy on individual not meeting criteria for high risk Diagnosis Code(s): --- Professional --- Z12.11, Encounter for screening for malignant neoplasm of colon K64.8, Other hemorrhoids --- Technical --- Z12.11, Encounter for screening for malignant neoplasm of colon K64.8, Other hemorrhoids CPT copyright 2020 [employer]. All rights reserved. The codes documented in this report are preliminary and upon supervisor printing shop reviewmay be revised to meet current compliance requirements. Recognized by the [employer] for promoting quality in endoscopy Jay Cardona MD ENDOSCOPY PROCEDURES Final Resul t from Last 3 Months or Most Recently Relevant to Health Maintenance Insurance [employer] ACCESS CHOICE Advance Directives For more information, please contact: [phone] * Full Code (Latest Code Status on File) Date Activated Date Inactivated Comments 02/24/2024 8:48 AM 02/24/2024 2:47 PM * Full Code Date Activated Date Inactivated Comments 02/24/2024 8:48 AM 02/24/2024 8:48 AM Care Teams Internet Marketing Director Relationship Specialty Start Date End Date Jana Harden PA PCP - General Physician [employer] 06/26/20
--- OUTSIDE RECORDS SUMMARY | 2025-01-09 12:13 | XMS_ITS | Data Portability ---
Author Organization [facility] AVERYСветланаMontcalm H Address [address] [place] [address] Care Team Providers Care Mesh Worker Name Role Phone JANA ROSARIO Primary Care Provider Unavailab le Assessment Encounter Date Assessment Date Assessment LastModified by Organization Details LastModified Time 01/04/2024 01/04/2024 colonoscopy is scheduled for february. Not available 01/04/2024 11:11:53 02/23/2024 02/23/2024 Colonoscopy planned tomorrow. Not available 02/23/2024 10:06:36 07/18/2024 07/18/2024 Colonoscopy completed February 2024 repeat 3 years with a 2 day prep Not available 08/05/2024 00:59:31 Plan of Treatment Reminders Order Date Submit Date Provider Last Modified By Organization Details Last Modified Time Details Appointments ANY 15 2024 01:30P M GUERA Mc Not available Not available Not available Lab vitam in B12 + folat e, serum or blood [address] (Lab), [address] [place], [address], 01/06/2025 09:44:58 CBC w/ auto diff [address] (Lab), [address] [place], [address], 01/06/2025 09:44:58 CMP, serum or plasm a [address] (Lab), [address] [place], [address], 01/06/2025 09:44:58 TSH + free T4, serum [address] (Lab), [address] [place], [address], 01/06/2025 09:44:59 lipid panel , serum [address] (Lab), [address] [place], [address], 01/06/2025 09:44:59 glyco hemog lobin , total , blood [address] (Lab), [address] [place], [address], 01/06/2025 09:44:59 vitam in B12 + folat e, serum or blood [address] (Lab), [address] [place], [address], 12/06/2024 10:25:38 CBC w/ auto diff [address] (Lab), [address] [place], [address], 12/06/2024 10:25:38 CMP, serum or plasm a [address] (Lab), [address] [place], [address], 12/06/2024 10:25:38 TSH + free T4, serum [address] (Lab), [address] [place], [address], 12/06/2024 10:25:38 lipid panel , serum [address] (Lab), [address] [place], [address], 12/06/2024 10:25:38 hemog lobin A1c, QN, blood [address] (Lab), [address] [place], [address], 12/06/2024 10:25:38 vitam in B12 + folat e, serum or blood [address] (Lab), [address] [place], [address], 06/24/2023 14:49:28 CBC w/ auto diff [address] (Lab), [address] [place], [address], 06/24/2023 14:49:28 CMP, serum or plasm a [address] (Lab), [address] [place], [address], 06/24/2023 14:49:28 TSH + free T4, serum [address] (Lab), [address] [place], [address], 06/24/2023 14:49:29 lipid panel , serum [address] (Lab), [address] [place], [address], 06/24/2023 14:49:29 hemog lobin A1c, QN, blood [address] (Lab), [address] [place], [address], 06/24/2023 14:49:29 Referral hand surge on refer ral 2023 024 LORETO Ortiz MD, [address] [facility] [address], [place], [address], 11/10/2023 12:04:04 Procedures colon oscop y alonso franco (PROC ) 2023 024 [facility], [address] [place] [address], [address], [place], [address], 02/24/2024 10:55:56 Surgeries None recor ded. Imaging MAMMO , alonso salvador, digit al, bilat eral 2024 025 [facility] (Imaging), [address] [place], [address], 12/28/2024 14:14:13 MAMMO , alonso franco, digit al, bilat eral 2023 024 [facility] (Imaging), [address] [place], [address], 07/20/2023 12:28:37 Medication Orders panto prazo le 40 mg table t,del ayed relea se 2024 025 [facility] #[id number], [address], [place], [address], 02/23/2024 10:05:55 metop rolol succi anai ER 50 mg table t,ext ended relea se 24 hr 2023 024 [facility]armacy #[id number], [address], [place], [address], 01/04/2024 11:19:50 Wegov y 0.25 mg/0. 5 mL subcu taneo us pen injec tor 2023 024 LOR[facility][id number], [address], [place], [address], 01/05/2024 16:10:04 valsa rtan 160 mg table t 2023 024 tcarterma [id number], [address], [place], [address], 07/18/2024 14:16:21 metop rolol succi anai ER 50 mg table t,ext ended relea se 24 hr 2023 024 tcarterma [id number], [address], [place], [address], 01/04/2024 10:57:52 Patient TargetsNo targets recorded. Patient Instructions Encounter Date Encounter Id Patient Instructions Last Modified By Organization Details Last Modified Time 07/02/2023 [id number] A healthy lifestyle: care instructions Not available 07/12/2023 10:41:15 01/04/2024 [id number] A healthy lifestyle: care instructions Not available 01/04/2024 11:19:45 02/23/2024 [id number] A healthy lifestyle: care instructions Not available 03/10/2024 22:58:43 07/18/2024 [id number] A healthy lifestyle: care instructions Not available 07/18/2024 14:48:26 Reason for Referral Hand Surgeon Referral for Bi lateral carpal tunnel syndrome bilat. CTS. NCS completed at [place] 2022. Referring Physician: Jana Rosario, Internal Medicine, Encounter Date: 05/22/2023 Results Created Date Observation Date Name Description Value Unit Range Abnormal Flag Note LastModifiedBy Organization Detail LastModifiedTime 07/20/1907/20/2023 MAMMO , scree salvador, digit al, bilat eral No observ ation record ed. [facility] [address], [place], [address], 01/10/2024 22:27:43 Result Notes None recorded. Problems Name Problem SNOMED Code Status Onset Date Resolution Date Notes Provider Name and Address Organization Details Recorded Time Generalized anxiety disorder 41908240 Active 2023 Mendy garcia, [place] - [facility] 4 11:23:29 Liver enzymes level above reference range 612920785 Active 2023 GUERA Mc Attn: Accountin g,[address] [place], [place], [address] [place] [address] 2, [place] [facility] 4 10:40:37 Benign essential hypertensio n 9161686 Active 2023 GUERA Mc Attn: Accountin g,[address] [place], [place], [address] [place] [address], [place] [facility] 4 10:40:38 Long-term drug therapy Active 2023 GUERA Mc Attn: Accountin g,[address] [place], [place], [address] [place] [address], [place] [facility] 4 10:40:48 Obesity 178031640 Active 2023 GUERA Mc Attn: Accountin g,[address] [place], [place], [address] [place] [address], [place] [facility] 4 10:41:15 Body mass index 30+ - obesity 388230006 Active 2023 GUERA Mc Attn: Accountin g,[address] [facility], [place], [place], [address] [place] [address], [place] [facility] 4 10:41:16 History of sleeve gastrectomy 3063349235551 07 Active 2023 GUERA Mc Attn: Accountin g,[address] [facility], [place], [place], [address] [place] [address], [place] [facility] 4 11:12:34 Obese class II 4367518809542 05 Active 2024 GUERA Mc Attn: Accountin g,[address] [facility], [place], [address], [facility] 5 14:32:32 Problem Notes None recorded. Procedures Surgical History Date Name Laterality Status Provider Name and Address Organization Details Recorded Time Carpal tunnel surgery completed Esvin Self MA [facility] 02/23/2024 09:40:13 ligation of bilateral fallopian tubes completed Adriana Arboleda MA [facility] 05/22/2023 16:39:03 section completed Adriana Arboleda MA [facility] 05/22/2023 16:39:11 Dilation and Curettage completed Adriana Arboleda MA [facility] 05/22/2023 16:39:17 Imaging Results None recorded. Procedure Notes None recorded. Medical Equipment None Reported. Allergies No known drug allergies Medications Name Sig Start Date Stop Date Status Note LastModified by Organization Details LastModified Time metoprolol succinate ER 50 mg tablet,exte nded release 24 hr TAKE 1 TABLET BY MOUTH EVERY DAY active Not Available Not Available No t Available tramadol 50 mg tablet Take by oral route for 3 days. 02/22 completed Not Available Not Available Not Available amoxicillin 875 mg tablet TAKE 1 TABLET BY MOUTH TWICE A DAY FOR 7 DAYS 07/18 completed Not Available Not Available Not Available pantoprazol e 40 mg tablet,justo yed release TAKE 1 TABLET EVERY DAY BY ORAL ROUTE IN THE MORNING. active Not Available Not Available No t Available polymyxin B sulfate 10,000 unit-trimet hoprim 1 mg/mL eye drops INSTILL 1 DROP INTO AFFECTED EYE(S) BY OPHTHALMI C ROUTE EVERY 6 HOURS FOR 5-7 DAYS 05/21 completed Not Available Not Available Not Available methylpredn isolone 4 mg tablets in a dose pack TAKE 6 TABLETS ON DAY 1 DIRECTED ON PACKAGE AND DECREASE BY 1 TAB EACH DAY FOR A TOTAL OF 6 DAYS 07/18 completed Not Available Not Available Not Available valsartan 160 mg tablet TAKE 1 TABLET BY MOUTH EVERY DAY 07/18 completed Not Available Not Available Not Available escitalopra m 10 mg tablet TAKE 1 TABLET BY MOUTH EVERY DAY active Not Available Not Available No t Available Wegovy 0.25 mg/0.5 mL subcutaneou s pen injector Inject 0.25 mg every week by subcutane ous route. 01/04 completed Not Available Not Available Not Available Vitals Date Recorded Systolic And Diastolic Provider Name and Address Organization Details Last Updated DateTime 02/23/2024 140/80 mm[Hg] GUERA Mc Attn: Accounting,[address] [place], [address], [facility] 02/23/2024 10:04:19 Date Recorded Body height Body mass index (BMI) Body weight Respiratory rate Oxygen saturation Heart rate Systolic And Diastolic Provider Name and Address Organization Details Last Updated DateTime 5 162.56 cm 39.7 kg/m2 730045. 84 g 18 /min 98 % 71 /min 136/82 mm[Hg] Esvin Self MA [facility] 5 09:42:20 Date Recorded Oxygen saturation Respiratory rate Systolic And Diastolic Systolic And Diastolic Provider Name and Address Organization Details Last Updated DateTime 05/22/2023 97 % 18 /min 160/100 mm[Hg] 160/100 mm[Hg] GUERA Mc Attn: Accountin g,[address] [place], [address], [facility] 4 16:25:37 Date Recorded Body height Body mass index (BMI) Body weight Body temperature Heart rate Systolic And Diastolic Provider Name and Address Organization Details Last Updated DateTime 4 162.56 cm 3.5 kg/m2 9117.21 g 98.8 [degF] 74 /min 144/92 mm[Hg] Adriana Arboleda MA [facility] 4 15:58:59 Date Recorded Body height Body mass index (BMI) Body weight Heart rate Oxygen saturation Systolic And Diastolic Provider Name and Address Organization Details Last Updated DateTime 4 162.56 cm 37.2 kg/m2 52628.5 4 g 85 /min 97 % 160/98 mm[Hg] Adriana Arboleda MA [facility] 4 11:46:37 Date Recorded Body height Body mass index (BMI) Body weight Respiratory rate Oxygen saturation Heart rate Systolic And Diastolic Provider Name and Address Organization Details Last Updated DateTime 5 162.56 cm 35.6 kg/m2 48805.0 6 g 18 /min 98 % 82 /min 122/80 mm[Hg] Esvin Self MA [facility] 5 14:18:30 Date Recorded Systolic And Diastolic Systolic And Diastolic Provider Name and Address Organization Details Last Updated DateTime 01/04/2024 140/92 mm[Hg] 132/84 mm[Hg] GUERA Mc Attn: Accounting,[address] [facility], [place], [address], [facility] 01/04/2024 11:17:16 Date Recorded Body height Body mass index (BMI) Body weight Respiratory rate Oxygen saturation Heart rate Systolic And Diastolic Provider Name and Address Organization Details Last Updated DateTime 162.56 cm 38.8 kg/m2 052457. 88 g 18 /min 98 % 70 /min 150/82 mm[Hg] Esvin Self MA [facility] 11:02:00 Social History Question Answer Notes LastModified by [email or web address] ion Details LastModified Time Tobacco Smoking Status Never Smoker Adriana Arboleda MA [facility], [facility] 05/22/2023 15:56:31 Do You Have An Advance Directive? No Information n ot available 01/04/2024 Are You Blind Or Do You Have Difficulty Seeing? No Information n ot available 05/22/2023 What Is Your Level Of Caffeine Consumption? Moderate Information not available 01/04/2024 In The 14 Days Before Symptom Onset, Have You Had Close Contact With A Laboratory-confirm ed COVID-19 While That Case Was Ill? No Information n ot available 01/04/2024 In The 14 Days Before Symptom Onset, Have You Had Close Contact With A Person Who Is Under Investigation For COVID-19 While That Person Was Ill? No Information not available 01/04/2024 Have You Been To An Area Known To Be High Risk For COVID-19? No Information not available 01/04/2024 Are You Deaf Or Do You Have Serious Difficulty Hearing? No Information not available 05/22/2023 What Type Of Diet Are You Following? REGULAR Information n ot available 01/04/2024 Are There Any Guns Present In Your Home? No Information not available 01/04/2024 What Was The Date Of Your Most Recent Tobacco Screening? 07/18/2024 Information not available 07/18/2024 What Is Your Relationship Status? Information not available 05/22/2023 Do You Use Your Seat Belt Or Car Seat Routinely? Yes Information not available 05/22/2023 Do You Have Smoke And Carbon Monoxide Detectors In Your Home? Yes Information not available 01/04/2024 Do You Use Sunscreen Routinely? Yes Information not available 01/04/2024 Has Tobacco Cessation Counseling Been Provided? No Information not available 01/04/2024 Sex: Unknown Functional Status Question Answer Note LastModified by Organizat ion Details LastModified Time Do you use any illicit or recreational drugs? No Information not available 01/04/2024 Do you or have you ever used any other forms of tobacco or nicotine? No Information not available 01/04/2024 What is your level of alcohol consumption? None Information not available 05/22/2023 Are you currently employed? Yes Information not available 01/04/2024 Are you able to care for yourself independently? Yes Information not available 05/22/2023 What is your exercise level? None Information not available 01/04/2024 Mental Status Question Answer Note LastModified by Organization D etails LastModified Time Do you feel stressed (tense, restless, nervous, or anxious, or unable to sleep at night)? [id number] Information not available 05/22/2023 Family History Relationship Description Onset Age of this Age Resolved Age Notes LastModified by Organization Details LastModified Time Father Harmful pattern of use of alcohol apaytonma Not available 2023 16:40:03 Father Kidney disease apaytonma Not available 2023 16:40:34 Father Malignant neoplasm of tonsil apaytonma Not available 2023 16:40:46 Mother Cerebrovascu lar accident apaytonma Not available 01/2024 16:40:08 Mother Diabetes mellitus apaytonma Not available 2023 16:40:13 Mother Heart disease apaytonma Not available 2023 16:40:18 Mother Hypertensive disorder apaytonma Not available 2023 16:40:24 Medical History Condition Response Anxiety Disorder Y High Blood Pressure Y Gynecological History Statement/Question Response Menses Monthly N Obstetrics History GPAL:G 4 P 4 0 0 4 Type Value Full Term 4 Induced 0 Spontaneous 0 Premature 0 Living 4 Total 4 Immunizations Vaccine Type Date Status Note Provider Nam e and Address Organization Details Recorded Time COVID-19, mRNA, LNP-S, PF, 30 mcg/0.3 mL dose 07/02/2020 completed SAEID Perez, [place] [facility] 01/04/2024 10:58:59 COVID-19, mRNA, LNP-S, PF, 30 mcg/0.3 mL dose 07/23/2020 [place] SAEID [place], [place] [facility] 01/04/2024 10:58:59 Past Encounters Encounter ID Performer Location Encounter Start Date Encounter Closed Date Diagnosis/Indication Diagnosis SNOMED-CT Code Diagnosis ICD10 Code Diagnosis IMO Codes Diagnosis Note [id number] Fernando Weldon MD [facility] [address] [facility] [address] [place] [address] 05/22/2023 15:42:47 05/22/2023 16:34:45 Adult health examination 477028747 Z00.01 annual wellness completed. Screening mammography 24 080874 Z12.31 mammogram due Screening for malignant neoplasm of colon 268175754 Z12.11 routine colonoscop y is due Cholesterol screening 27 6733283 Z13.220 fasting lipids due Diabetes m ellitus screening 580457240 Z13.1 a1c screening due History of sleeve gastrectomy 7109951843 11973 Z90.3 b12, foltae, cbc and cmp due Thyroid di sorder screening 436469837 Z13.29 thyroid panel due. Generalize d anxiety disorder 21888872 F41.1 stable on lexapro 10mg daily. Long-term drug therapy 914739541 Z79.899 routine labs are all UTD from last office location. will await records transfer. Benign ess ential hypertension 9357870 I10 start metoprolol ER 50mg daily. Bilateral carpal tunnel syndrome 4356014881 6511997 G56.03 refer to local hand surgeon for bilat. CTS [id number] Fernando Weldon MD [facility] [address] [place] [address] 07/02/2023 11:36:43 07/02/2023 16:06:26 Benign essential hypertension 3403605 I10 BP still 160/98 today: add valsartan 160mg daily to regimen. continue metoprolol succ ER 50mg daily. Liver enzy mes level above reference range 426954340 R74.01 mild elevation in LFT's persists on labs. Pt has known hx of fatty liver. Long-term drug therapy 380871143 Z9 Body mass index 30+ - obesity 029092600 Z68.37 bmi 37.2 Obesity 207517885 E66.9 discussed healthy diet, exercise, controllin g carbohydra junior and added sugars in the diet [id number] Fernando Weldon MD [facility] [address] [place] [address] 01/04/2024 10:49:58 01/04/2024 11:36:40 Benign essential hypertension 7715576 I10 bp still just above goal, 132/84. planning for wegovy weight loss to help manage her BP further. We just need some fine tuning to bring the blood pressure down a little bit. We will refill her metoprolol succinate ER 50 mg daily Cholesterol screening 27 8289126 Z13.220 fasting lipids due in June Diabetes m ellitus screening 806152063 Z13.1 a1c screening due in June History of sleeve gastrectomy 3413864882 00731 Z90.3 b12, foltae, cbc and cmp due in June Thyroid di sorder screening 971746077 Z13.29 Thyroid panel will be ordered with the next set of labs Generalize d anxiety disorder 69296145 F41.1 stable on lexapro 10mg daily. No changes patient is feeling well with her overall mental health Long-term drug therapy 687158349 Z79.89 Body mass index 30+ - obesity 930719473 Z68.37 bmi 38.8. start Wegovy injectable therapy. no personal or family hx of Medullary thyroid cancer or MEN conditions . Obesity 093268707 E66.9 discussed healthy diet, exercise, controllin g carbohydra junior and added sugars in the diet [id number] Fernando Weldon MD [facility] [address] [place] [address] 02/23/2024 09:23:08 02/23/2024 12:04:28 Indigestion 473040212 K30 Treatment as above Acid reflux 819465116 K2 1.9 Symptoms are very consistent with acid reflux. Exacerbate d by carbonated dark sodas. Start pantoprazo le 40 mg daily in the morning Benign ess ential hypertension 8371200 I10 Blood pressure is 140/80 today. Patient is on metoprolol succinate ER 50 mg daily and valsartan 160 mg daily. Blood pressure increases likely related to weight gain. Body mass index 30+ - obesity 891972418 Z68.37 BMI is 39.7 Obesity 519910432 E66.9 discussed healthy diet, exercise, controllin g carbohydra junior and added sugars in the diet [id number] Fernando Weldon MD [facility] [address] [place] [address] 07/18/2024 14:02:48 07/18/2024 17:23:55 Obese class II 3844646279 36275 E66.308 3309025 discussed healthy diet, exercise, controllin g carbohydra junior and added sugars in the diet Benign ess ential hypertension 8309840 I10 Blood pressure 122/80 stable on metoprolol succinate ER 50 mg daily Generalize d anxiety disorder 27876592 F41.1 stable on lexapro 10mg daily. No changes patient is feeling well with her overall mental health Cholesterol screening 27 9113531 Z13.220 fasting lipids due Diabetes m ellitus screening 129398504 Z13.1 a1c screening due History of sleeve gastrectomy 6654288836 59771 Z90.3 b12, foltae, cbc and cmp due Thyroid di sorder screening 847268700 Z13.29 Thyroid panel will be ordered with the next set of labs Long-term drug therapy 131235791 Z79.899 She did not get her labs drawn yet new orders given today Adult heal th examination 914288050 Z00.00 6537896 annual wellness completed. Screening mammography 24 527381 Z12.31 23631759 mammogram due Health Concerns Section Related Observation LastModified by Organization Detai ls LastModified Time None Recorded Concern Status LastModified by Organization Details LastModified Time None Recorded Advance Directives Directive N: Payers Insurance Date Sequence Insurance Name Policy Number Policy Pryor Covered Member ID Pryor Member ID Guarantor Name 08/05/2024 1 [facility] [id number] [address] [place] Hernández Smita [id number] Aislinn Smita Notes Date Note Type Note Provider Name and Address Organization Details Recorded Time 4 text/html HypertensionReported by PatientHPIFor onset/timing, patient reportsworse. For aggravating factors, patient reportsweight change. For severity, patient reportsmild. For associated symptoms, patient reportsno shortness of breath,no fatigue,no palpitations,no decline in exercise capacity, andno snoring.exacerbated today. Anxiety/DepressionReporte d by Patientstable on lexapro 10mg daily. mood stable. no c/o. Pt has known Carpal tunnel syndrome on bilateral hands from last office. she is still to see plastics/hand specialist and needs new referral. hx of gastric sleeve surgery a few years ago. due for updated vitamin labs. she has gained some weight back. GUERA Mc Attn: Accounting,[address] [place], [address], [facility] 06/09/2023 00:59:09 4 text/html HypertensionReported by PatientHPIFor onset/timing, patient reportsworse. For aggravating factors, patient reportsweight change. For severity, patient reportsmild. For associated symptoms, patient reportsno shortness of breath,no fatigue,no palpitations,no decline in exercise capacity, andno snoring.f/u on BP after elevation noted last appt. she is on metoprolol succ ER 50mg daily. GUERA Mc Attn: Accounting,[address] [facility], [place], [address], [place] [facility] 07/12/2023 10:43:15 4 text/html HypertensionReported by PatientHPIFor onset/timing, patient reportsworse. For aggravating factors, patient reportsweight change. For severity, patient reportsmild. For associated symptoms, patient reportsno shortness of breath,no fatigue,no palpitations,no decline in exercise capacity, andno snoring. Anxiety/DepressionReporte d by Patientstable on lexapro 10mg daily. mood stable. no c/o. pt had bilat. Carpal tunnel syndrome. Patient is healing well hx of gastric sleeve surgery a few years ago. due for updated vitamin labs. she has gained some weight back. GUERA Mc Attn: Accounting,[address] [facility], [place], [address], [place] [facility] 01/10/2024 22:30:06 5 text/html Reflux/GERDReported by Patientdyspepsia and midsternal burning, that was worse dark sodas but now she has stopped and it has improved notably already. Still feels gas and bloating at times. GUERA Mc Attn: Accounting,[address] [facility], [place], [address], [facility] 03/10/2024 22:59:01 5 text/html HypertensionReported by PatientHPIFor onset/timing, patient reportsworse. For aggravating factors, patient reportsweight change. For severity, patient reportsmild. For associated symptoms, patient reportsno shortness of breath,no fatigue,no palpitations,no decline in exercise capacity, andno snoring. Anxiety/DepressionReporte d by Patientstable on lexapro 10mg daily. mood stable. no c/o. pt had bilat. Carpal tunnel syndrome. Patient is doing well hx of gastric sleeve surgery a few years ago. due for updated vitamin labs. she has gained some weight back. GUERA Mc Attn: Accounting,[address] [facility], [place], [address], [place] [facility] 08/05/2024 01:00:21 OBGyn Episode No OBEpisode recorded.
--- OUTSIDE RECORDS SUMMARY | 2025-01-09 12:46 | XMS_ITS | Clinical Summary ---
Author Organization [facility]3 Address [address] [place] [address] Care Team Providers Care [place] Cutting Machine Operator Name Role Phone Jana Guadarrama Primary Care Pr ovider Source Comments [facility],non-owned Affiliates and Associated Physician Practices is amultiple site organization consisting of ambulatory clinics and hospital sitesin [place], [place], [place] and [place]. This disclosure is being madepursuant to the Care Everywhere program and may not contain all information available regarding this patient. Last updated 17.[facility] Allergies No known active allergies Medications * [...] 36.5 C (97.7 F) 04/18/2021 10:24 AM ASSOCIATE DIRECTOR OF DEVELOPMENT Respiratory Rate 18 09/16/2021 1:48 PM CDT [...] (CALCIUM TOTAL) AM Draw 03/19/2021 3:55 AM ASSOCIATE DIRECTOR OF DEVELOPMENT from Last 3 Months or Most Recently Relevant to Health Maintenance Results * (ABNORMAL) BASIC METABOLIC PANEL (CALCIUM TOTAL) (03/19/2021 3:55 AM ASSOCIATE DIRECTOR OF DEVELOPMENT) Glucose 119(H) 70 - 105 mg/dL 03/19/2021 5:19 AM ASSOCIATE DIRECTOR OF DEVELOPMENT [facility] Sodium 139 136 - 145 mmol/L 03/19/2021 5:19 AM ASSOCIATE DIRECTOR OF DEVELOPMENT [facility] Potassium 3.7 3.5 - 5.1 mmol/L 03/19/2021 5:19 AM ASSOCIATE DIRECTOR OF DEVELOPMENT [facility] Chloride 105 98 - 107 mmol/L 03/19/2021 5:19 AM ASSOCIATE DIRECTOR OF DEVELOPMENT [facility] CO2 24 23 - 31 mmol/L 03/19/2021 5:19 AM ASSOCIATE DIRECTOR OF DEVELOPMENT [facility] Calcium 9.0 8.4 - 10.4 mg/dL 03/19/2021 5:19 AM ASSOCIATE DIRECTOR OF DEVELOPMENT [facility] Anion Gap 10 8 - 18 mmol/L 03/19/2021 5:19 AM ASSOCIATE DIRECTOR OF DEVELOPMENT [facility] BUN 9 7 - 18.7 mg/dL 03/19/2021 5:19 AM [facility] Creatinine 1.17(H) 0.57 - 1.11 mg/dL 03/19/2021 5:19 AM ASSOCIATE DIRECTOR OF DEVELOPMENT [facility] eGFR by MDRD 50(L) >60 mL/min/1.7 3m2 03/19/2021 5:19 AM ASSOCIATE DIRECTOR OF DEVELOPMENT [facility] eGFR by MDRD >60 >60 mL/min/1.7 3m2 03/19/2021 5:19 AM ASSOCIATE DIRECTOR OF DEVELOPMENT [facility] Blood BLOOD SPECIMEN / Unknown Venipuncture / Unknown 03/19/2021 3:55 AM ASSOCIATE DIRECTOR OF DEVELOPMENT 03/19/2021 4:49 AM ASSOCIATE DIRECTOR OF DEVELOPMENT us Solo Velez MD LAB - CHEMISTRY ORDERABLES F inal Result [facility] [id number] [place] [address] from Last 3 Months or Most Recently Relevant to Health Maintenance Insurance Advance Directives * Full Code (Latest Code Status on File) Date Activated Date Inactivated Comments 03/18/2021 3:37 PM 03/19/2021 3:22 PM Care Teams [place] Cutting Machine Operator Relationship Specialty Start Date End Date Jana Guadarrama PA [address] [place] [address] PCP - General Physician Packing Inspector 09/19/20
--- OUTSIDE RECORDS SUMMARY | 2025-01-09 12:46 | XMS_ITS | Clinical Summary ---
Author Organization [facility] [address] Address [address] [place] [address] Care Team Providers Care Director External Communications Name Role Phone Jana Harden Primary Care [...] on file Legal Sex Female 2:41 AM PHOTOENGRAVING SKETCH MAKER Gender Identity Not on file Sexual Orientation Not on file Last Filed Vital Signs Vital Sign Reading Time Taken Comments Blood Pressure 93/67 02/24/2024 10:06 AM PHOTOENGRAVING SKETCH MAKER Pulse 66 02/24/2024 10:06 AM PHOTOENGRAVING SKETCH MAKER Temperature 36.9 C (98.5 F) 02/24/2024 10:06 AM PHOTOENGRAVING SKETCH MAKER Respiratory Rate 16 02/24/2024 10:06 AM PHOTOENGRAVING SKETCH MAKER Oxygen Saturation 100% 02/24/2024 10:06 AM PHOTOENGRAVING SKETCH MAKER Inhaled Oxygen Concentration - - Weight 104.3 kg (230 lb) 02/24/2024 8:48 AM PHOTOENGRAVING SKETCH MAKER Height 162.6 cm (5' 4) 02/24/2024 8:48 AM PHOTOENGRAVING SKETCH MAKER Body Mass Index 39.48 02/24/2024 8:48 AM PHOTOENGRAVING SKETCH MAKER Plan of Treatment Health Maintenance Due Date [...] Associated Diagnosis Comments COLONOSCOPY 02/24/2024 8:51 AM PHOTOENGRAVING SKETCH MAKER from Last 3 Months or Most Recently Relevant to Health Maintenance Results * Colonoscopy (02/24/2024 8:51 AM PHOTOENGRAVING SKETCH MAKER) Anatomical Region Laterality Modality Other Narrative Procedure Note Jay Cardona MD - 02/24/2024 8:51 AM CST [facility] Patient Name: Aislinn Macario Procedure Date: 02/24/2024 8:51 AM Date of : 1975 Admit Type: Outpatient Age: 48 Gender: Female Attending MD: Jay Cardona M.D. Room: [facility] ENDOSCOPY ROOM 2 Note Status: [...] procedure were verified by the physician, the marketing producer and the wind commissioning technician in the endoscopy suite. Mental Status [...] scope was passed under direct vision. TheColonoscope [id number] was introduced through the anus and advanced [...] colon K64.8, Other hemorrhoids CPT copyright 2020 [employer]. All rights reserved. The codes documented in this report are preliminary and upon contract serviceman reviewmay be revised to meet current compliance requirements. Recognized by the [employer] for promoting quality in endoscopy Jay Cardona MD ENDOSCOPY PROCEDURES Final Resul t from Last 3 Months or Most Recently Relevant to Health Maintenance Insurance [employer] ACCESS CHOICE Advance Directives For more information, please contact: [phone] * Full Code (Latest Code Status on File) Date Activated Date Inactivated Comments 02/24/2024 8:48 AM 02/24/2024 2:47 PM * Full Code Date Activated Date Inactivated Comments 02/24/2024 8:48 AM 02/24/2024 8:48 AM Care Teams Director External Communications Relationship Specialty Start Date End Date Jana Harden PA PCP - General Physician Senior Engineering Manager 06/26/20
--- NOTE | 2025-01-09 13:38 | ED.GENADULT ---
HPI - General Adult General Chief complaint: Nausea/Vomiting/Diarrhea Stated complaint: vomiting Time Seen by Provider: 01/09/25 11:07 History of Present Illness HPI narrative: 49-year-old female presenting with vomiting since Thursday. Patient reports she took a new dose of a GLP-1 and began vomiting shortly after this. Denies abdominal pain, diarrhea, fever/chills, or any urinary concerns. No present concerns other than generalized malaise. Related Data Home Medications ?Medication ?Instructions ?Recorded ?Confirmed ?Last Taken ?Type escitalopram oxalate 10 mg tablet 10 mg PO DAILY 07/21/23 12/23/23 12/30/23 09:15 History metoprolol succinate 50 mg 50 mg PO DAILY 07/21/23 12/23/23 12/30/23 09:15 History tablet,extended release 24 hr valsartan 160 mg tablet 160 mg PO DAILY 07/21/23 12/30/23 12/29/23 History Allergies Allergy/AdvReac Type Severity Reaction Status Date / Time NSAIDS (Non-Steroidal Allergy Unknown Verified 01/09/25 10:50 Anti-Inflamma Review of Systems Review of Systems: All systems reviewed & are unremarkable except as noted in HPI and below PMFSH Family History Family History Father Cancer Hypertension Mother Diabetes mellitus Heart disease Thyroid disorder Grandparent Heart disease Cancer Social History Social History Smoking status: Never smoker Alcohol intake: never Substance use: never Substance use type: does not use Lack of Transportation: No Lack of Food: Never True Current Housing: I Have Housing Concerned About Future Housing: No Difficulty Paying Gas/Electric Bills: No Difficulty Paying for Meds: No Currently Unemployed: No Education: High School Diploma/GED Difficulty w/ Childcare or Family Care: No Living arrangements: with family Spiritual care concerns: No Exam Narrative: GENERAL: No acute distress. HEAD: Normocephalic, atraumatic. EYES: PERRLA and EOMI. ENT: Nares clear, no rhinorrhea or epistaxis. Mucous membranes moist. Oropharynx without tonsillar hypertrophy exudate or other lesions. Bilateral TMs pearly foster non-bulging NECK: Supple. No adenopathy or masses. No carotid bruits or JVD CHEST: Clear to auscultation. No respiratory distress. No wheezes rales or rhonchi HEART: Regular rate and rhythm. No murmur heard. Normal peripheral pulses. ABDOMEN: Soft, nontender, nondistended, normal active bowel sounds. EXTREMITIES: Normal range of motion. No edema. SKIN: Warm, dry, no rash. NEURO: No focal deficits. Alert and oriented x3. PSYCH: Normal mood and affect Course Vital Signs Vital signs: Vital Signs Temperature 98 F 01/09/25 10:47 Pulse Rate 90 01/09/25 10:47 Respiratory Rate 16 01/09/25 10:47 Blood Pressure 172/90 H 01/09/25 10:47 Pulse Oximetry 100 01/09/25 10:47 Oxygen Delivery Room Air 01/09/25 10:47 Temperature 98 F 01/09/25 10:47 Pulse Rate 90 01/09/25 10:47 Respiratory Rate 16 01/09/25 10:47 Blood Pressure 172/90 H 01/09/25 10:47 Pulse Oximetry 100 01/09/25 10:47 Oxygen Delivery Room Air 01/09/25 10:47 Medical Decision Making MDM Narrative Medical decision making narrative: 49-year-old female presenting with vomiting since Thursday. Patient reports she took a new dose of a GLP-1 and began vomiting shortly after this. Denies abdominal pain, diarrhea, fever/chills, or any urinary concerns. No present concerns other than generalized malaise. Labs WNL. UA demonstrated UTI signs however patient denies any urinary symptoms. Informed her about this finding and that if she does develop symptoms to follow-up with her PCP. Administered 1 L NS. Patient reports improvement. Instructed to stop her medication until further guidance from her PCP. Will send home with Isabel. Patient agrees with discussion and after shared medical decision making agrees with plan of care. All questions were answered to the patient's satisfaction. The patient is appropriate for outpatient treatment and follow-up. Given reasons to return. Medical Records Medical records reviewed: Yes I reviewed the external patient's medical records. Vital Signs Vital Signs: Vital Signs Temperature 98 F 01/09/25 10:47 Pulse Rate 90 01/09/25 10:47 Respiratory Rate 16 01/09/25 10:47 Blood Pressure 172/90 H 01/09/25 10:47 Pulse Oximetry 100 01/09/25 10:47 Oxygen Delivery Room Air 01/09/25 10:47 Temperature 98 F 01/09/25 10:47 Pulse Rate 90 01/09/25 10:47 Respiratory Rate 16 01/09/25 10:47 Blood Pressure 172/90 H 01/09/25 10:47 Pulse Oximetry 100 01/09/25 10:47 Oxygen Delivery Room Air 01/09/25 10:47 Lab Data Lab results reviewed: Yes I reviewed the patient's lab results. 01/09/25 11:22 01/09/25 11:22 Labs: Lab Results 01/09/25 01/09/25 01/09/25 Range/Units 11:16 11:17 11:22 WBC 7.8 (4.5-10.0) K/mm3 RBC 4.68 (4.2-5.4) M/mm3 Hgb 13.3 (12.0-15.0) g/dL Hct 40.6 (37.0-47.0) % MCV 86.8 (80-100) fl MCH 28.4 (26-34) pg MCHC 32.8 (32-36) g/dl RDW 12.4 (11.5-14.5) % Plt Count 297 (150-375) k/mm3 MPV 9.3 (7.4-10.4) fl Immature Gran % (Auto) 0.3 (0-0.5) % Neut % (Auto) 84.5 H (45.5-73.1) % Lymph % (Auto) 10.8 L (18.3-44.2) % [place] % (Auto) 4.0 (2.6-8.5) % Eos % (Auto) 0.0 (0-4.4) % Baso % (Auto) 0.4 (0.2-1.2) % Lymph # (Auto) 0.84 L (0.9-3.2) K/mm3 [place] # (Auto) 0.3 (0.1-0.6) K/mm3 Eos # (Auto) 0.0 (0-0.3) K/mm3 Baso # (Auto) 0.0 (0.0-0.1) K/mm3 Abs Immat Gran (auto) 0.02 (0.00-0.031) K/mm3 Absolute Neuts (auto) 6.6 (1.3-6.7) K/mm3 Absolute Nucleated RBC 0.000 (0.0-0.012) K/mm3 Nucleated RBC % 0.0 (0.0-0.2) % Sodium 137 (137-145) mmol/L Potassium 3.6 (3.4-5.0) mmol/L Chloride 101 (98-107) mmol/L Carbon Dioxide 29 (22-30) mmol/L Anion Gap 7 (4-12) mmol/L BUN 21 H (7-17) mg/dL Creatinine 1.00 (0.7-1.0) mg/dL Estim Creat Clear Calc 68 ml/min Estimated GFR 59 (59 - ) Glucose 106 (65-110) mg/dL Calcium 9.2 (8.4-10.2) mg/dL Total Bilirubin 2.6 H (0.2-1.3) mg/dL AST 38 H (14-36) U/L ALT 37 H (6-35) U/L Alkaline Phosphatase 33 L (38-126) U/L Total Protein 8.3 H (6.3-8.2) g/dL Albumin 4.6 (3.5-5.1) g/dL Lipase 175 (23-300) U/L Urine Color Yellow (Yellow) Urine Appearance Clear (Clear) Urine pH 7.0 (5.0-9.0) Ur Specific [place] 1.006 (1.001-1.035) Urine Protein Negative (Negative) mg/dL Urine Glucose (UA) Negative (Negative) mg/dL Urine Ketones Negative (Negative) mg/dL Ur Blood (Man) 2+ H (Negative) Urine Nitrate Negative (Negative) Urine Bilirubin Negative (Negative) Urine Urobilinogen 0.2 (<2.0) mg/dL Leukocyte Esterase Rfl Trace H (Negative) YESICA/UL Urine RBC 11-20 H (0-2) /hpf Urine WBC 6-10 H (0-3) /hpf Ur Squamous Epith Cells Few (Few) /hpf Urine Bacteria 2+ H /hpf Urine Casts 0-2 Urine Test Negative Discharge Plan Discharge Clinical Impression: Vomiting Patient Disposition: Home Condition: Stable Instructions: Acute Nausea and Vomiting (ED) Additional Instructions: Return to the ER if you experience fever, abdominal pain with nausea and vomiting, you are unable to keep down liquids or solids, blood in the stool, pain or burning with urination, blood in the urine or any other symptoms that are concerning to you Small frequent meals. [place] diet. Hydrate with gatorade and water. Stop new medication until given further instruction by pcp. Follow up with primary care doctor. Patient Language: Portuguese Prescriptions: New ondansetron 4 mg tablet,disintegrating 4 mg PO Q6H Qty: 20 0RF No Action escitalopram oxalate 10 mg tablet 10 mg PO DAILY metoprolol succinate 50 mg tablet extended release 24 hr 50 mg PO DAILY valsartan 160 mg tablet 160 mg PO DAILY tramadol 50 mg tablet 50 mg PO Q6H PRN (Reason: pain) Qty: 12 0RF Follow-up/Referrals: Fina,TRINY Bates [Primary Care Provider, Unknown] Stand Alone Forms: Work/School Release IP
== END 2025-01-09 13:59 | disposition home or self-care (01) ==
PROVIDERS: PCP Physician Assistant
DX: R11.10 Vomiting, unspecified (principal)
CPT/HCPCS: 36415; 80053; 81001; 81025; 83690; 85025; 87086; 96360; 99283; J7030